=== PATIENT | male | born 1970 | race Caucasian/White ===

== ENCOUNTER 2021-09-13 11:05 | Emergency (ER) | payer BC, SELFPAY ==
[~2021-09-13] VITALS: Ht 188 cm; Wt 106.6 kg
--- NOTE | 2021-09-13 11:30 | NUR ---
Patient to ER bed TENT to gown for evaluation. Side rails up.
--- NOTE | 2021-09-13 11:45 | NUR ---
ER at bedside examining patient.
[2021-09-13 11:58] VITALS: BP_SYST 140
--- NOTE | 2021-09-13 12:00 | NUR ---
PT SENT FOR IV FUSION OF SOTROVIMAB AFTER TESTING COVID POS. H/O MS
[2021-09-13] MEDS ORDERED: SOTROVIMAB 500 MG in NS 100 ML IV ONE (13:15)
[2021-09-13] MEDS ORDERED: SOTROVIMAB 500 MG/8 ML VIAL IV ONE (14:05)
--- NOTE | 2021-09-13 14:20 | NUR ---
PT TOLERATING MEDS WELL.
[2021-09-13 15:00] VITALS: BP_SYST 135
--- NOTE | 2021-09-13 15:00 | NUR ---
Patient given written and verbal discharge instructions and verbalizes understanding. ER MD discussed with patient the results and treatment provided. Patient in stable condition. ID arm band removed. IV catheter removed intact and dressing applied, no active bleeding. NO Rx of given. Patient educated on pain management and to follow up with PMD. Pain Scale 0 Opportunity for questions provided and answered. Medication side effect fact sheet provided.
== END 2021-09-13 15:00 | disposition home or self-care (01) ==
LOC: SED 11:05
DX: U07.1 COVID-19 (principal); Z88.0 Allergy status to penicillin
CPT/HCPCS: 36415; 87426; 99284; M0247; Q0247

== ENCOUNTER 2023-10-08 20:09 | Emergency (ER) | payer OTHER, BC ==
[~2023-10-08] VITALS: Ht 167.6 cm; Wt 115.7 kg
[2023-10-08 20:20] VITALS: BP_SYST 130; PULSE 67; RESP 16; TEMP 97.7; O2SAT 98
[2023-10-08] MEDS ORDERED: IBUP-1971 PO (20:49)
[2023-10-08] MEDS ORDERED: HYDR-3917 PO (20:49)
[2023-10-08] MEDS: IBUPROFEN 800 MG TABLET PO ONE (21:03)
[2023-10-08 21:12] VITALS: BP_SYST 127; PULSE 96; RESP 18; TEMP 97.6; O2SAT 95
== END 2023-10-08 21:12 | disposition home or self-care (01) ==
LOC: SED 20:09
DX: S82.832A Other fracture of upper and lower end of left fibula, initial encounter for closed fracture (principal); Z88.0 Allergy status to penicillin; Z79.899 Other long term (current) drug therapy; W22.8XXA Striking against or struck by other objects, initial encounter; Y93.89 Activity, other specified; Y92.89 Other specified places as the place of occurrence of the external cause; Y99.8 Other external cause status
CPT/HCPCS: 99283